=== PATIENT | male | born 1950 | race Caucasian/White ===

== ENCOUNTER 2022-02-13 11:00 | Inpatient (IN) | payer OTHER ==
[~2022-02-13] VITALS: Ht 167.6 cm; Wt 67.6 kg
[~2022-02-13 11:00] MED LIST: AMBIEN10 MG PO; AMITIZA24 MCG PO; ASPIR 8181 MG PO; CIPRO750 MG PO; CLONAZEPAM1 MG PO; CLONAZEPAM2 MG PO; Colace 100MG PO; DOCUSATE SODIU100 MG PO; GABAPENTIN400 MG PO; KETO10TA2 PO; KLONOPIN2 MG/TAB; LIBRAX PO; MEDROLPACK PO; NABUMETONE500 MG PO; NEURONTIN PO; NEURONTIN800 MG; NORFLEX100MG PO; PERCOCET 5-3251 EACH PO; PERCOCET 5/3251 TAB PO; PROTONIX40 MG PO; ZOCOR20 MG; ZOCOR20 MG PO
[2022-02-13] MEDS ORDERED: AMITIZA24 MCG PO (14:03)
[2022-02-13] MEDS ORDERED: PROTONIX40 MG PO (14:04)
[2022-02-13] MEDS ORDERED: CLARITIN10 M1 PO (14:04)
[2022-02-13] MEDS ORDERED: TRAZODONE HCL50 MG PO (14:05)
[2022-02-15] MEDS ORDERED: MEDROLPACK PO (08:13)
[2022-02-15] MEDS ORDERED: AMOX-CLAV 875-1 EACH PO (08:13)
[2022-02-15] MEDS ORDERED: COLACE100 MG PO (08:13)
[2022-02-15] MEDS ORDERED: NEURONTIN800 MG PO (08:13)
[2022-02-15] MEDS ORDERED: PERCOCET 5-3251 EACH PO (08:13)
== END 2022-02-17 19:34 | disposition home or self-care (01) | DRG 455 ==
LOC: O/R 02-15 08:45 → PED 02-15 08:45 → SURG 02-15 11:00 → PED 02-15 16:17 → SURG 02-15 18:15 → PED 02-17 19:34
PROVIDERS: ADMIT Orthopaedic Surgery Orthopaedic Surgery of the Spine; ATTEND Orthopaedic Surgery Orthopaedic Surgery of the Spine
PROC: 0SG00A0 Fusion of Lumbar Vertebral Joint with Interbody Fusion Device, Anterior Approach, Anterior Column, Open Approach (ICD-10-PCS; principal; 2022-02-15)
PROC: 0SG0071 Fusion of Lumbar Vertebral Joint with Autologous Tissue Substitute, Posterior Approach, Posterior Column, Open Approach (ICD-10-PCS; 2022-02-15)
PROC: 0SG30A0 Fusion of Lumbosacral Joint with Interbody Fusion Device, Anterior Approach, Anterior Column, Open Approach (ICD-10-PCS; 2022-02-15)
PROC: 0SG3071 Fusion of Lumbosacral Joint with Autologous Tissue Substitute, Posterior Approach, Posterior Column, Open Approach (ICD-10-PCS; 2022-02-15)
PROC: 0ST20ZZ Resection of Lumbar Vertebral Disc, Open Approach (ICD-10-PCS; 2022-02-15)
PROC: 0ST40ZZ Resection of Lumbosacral Disc, Open Approach (ICD-10-PCS; 2022-02-15)
PROC: 0SP004Z Removal of Internal Fixation Device from Lumbar Vertebral Joint, Open Approach (ICD-10-PCS; 2022-02-15)
PROC: 07DR0ZZ Extraction of Iliac Bone Marrow, Open Approach (ICD-10-PCS; 2022-02-15)
DX: M48.062 Spinal stenosis, lumbar region with neurogenic claudication (principal); M48.07 Spinal stenosis, lumbosacral region; M41.56 Other secondary scoliosis, lumbar region; M41.57 Other secondary scoliosis, lumbosacral region; M51.36 Other intervertebral disc degeneration, lumbar region; M51.37 Other intervertebral disc degeneration, lumbosacral region

== ENCOUNTER 2022-02-14 15:15 | Outpatient (CLI) | payer OTHER ==
[~2022-02-14 15:15] MED LIST changes: +CLARITIN10 M1 PO; +TRAZODONE HCL50 MG PO
[2022-02-15] MEDS ORDERED: PERCOCET 5-3251 EACH PO (08:13)
[2022-02-15] MEDS ORDERED: COLACE100 MG PO (08:13)
[2022-02-15] MEDS ORDERED: AMOX-CLAV 875-1 EACH PO (08:13)
[2022-02-15] MEDS ORDERED: NEURONTIN800 MG PO (08:13)
[2022-02-15] MEDS ORDERED: MEDROLPACK PO (08:13)
== END 2022-02-14 15:20 | disposition home or self-care (01) ==
LOC: TOM 15:15
PROVIDERS: ATTEND Internal Medicine
DX: I77.9 Disorder of arteries and arterioles, unspecified (principal)

== ENCOUNTER 2025-06-28 11:45 | Inpatient (IN) | payer OTHER ==
[~2025-06-28] VITALS: Ht 182.9 cm; Wt 62.6 kg
[~2025-06-28 11:45] MED LIST changes: +AMOX-CLAV 875-1 EACH PO; +COLACE100 MG PO; +NEURONTIN800 MG PO
[2025-06-28] MEDS ORDERED: ZETIA10 MG PO (13:58)
[2025-06-28] MEDS ORDERED: LIPITOR40 M1 PO (13:58)
[2025-07-05] MEDS ORDERED: MEDROLPACK PO (07:45)
[2025-07-05] MEDS ORDERED: ZOFRAN8 MG PO (07:45)
[2025-07-05] MEDS ORDERED: PERCOCET 5-3251 EACH PO (07:45)
[2025-07-05] MEDS ORDERED: COLACE100 MG PO (07:45)
[2025-07-05] MEDS ORDERED: 0.9 % SODIUM CHLORIDE 1,000 ML IV SCH (08:00)
[2025-07-05] MEDS ORDERED: PROMETHAZINE HCL 50 MG/ML AMPUL IM PRN (08:00)
[2025-07-05] MEDS ORDERED: ENALAPRILAT DIHYDRATE 1.25 MG/ML VIAL IV PRN (08:00)
[2025-07-05] MEDS ORDERED: VANCOMYCIN HCL 1,000 MG VIAL IV SCH (09:00)
[2025-07-05] MEDS ORDERED: MORPHINE SULFATE 4 MG/ML CARTRIDGE IV SCH (09:00)
[2025-07-05] MEDS ORDERED: METHYLPREDNISOLONE SOD SUCC 125 MG VIAL IV SCH (09:00)
[2025-07-05] MEDS ORDERED: CEFAZOLIN SODIUM 1,000 MG in 0.9 % SODIUM CHLORIDE 50 ML IV SCH (09:00)
[2025-07-05] MEDS ORDERED: DOCUSATE SODIUM 100MG CAP PO SCH (09:00)
[2025-07-05] MEDS ORDERED: TAMSULOSIN HCL 0.4 MG CAP PO SCH (09:00)
[2025-07-05] MEDS ORDERED: VANCOMYCIN HCL 1,000 MG VIAL ONE ×2 (11:05→15:25)
[2025-07-05] MEDS ORDERED: METHYLPREDNISOLONE ACETATE 80 MG/ML VIAL ONE (12:19)
[2025-07-05] MEDS ORDERED: HEMOSTATIC MATRIX WITH THROMBIN KIT TOP ONE (12:20)
[2025-07-05] MEDS ORDERED: METHYLPREDNISOLONE SOD SUCC 125 MG VIAL ONE (17:11)
[2025-07-05] MEDS ORDERED: CEFAZOLIN SODIUM 1,000 MG VIAL ONE (17:11)
[2025-07-05 18:33] VITALS: BP 139/68; O2SAT 96
[2025-07-05] MEDS ORDERED: ACETAMINOPHEN 500 MG GEL..CAP PO SCH (20:00)
[2025-07-05 22:14] VITALS: O2SAT 99
[2025-07-06] VITALS (7 sets, daily range): BP systolic 112–148; BP diastolic 50–78; O2SAT 90–98
[2025-07-06] MEDS ORDERED: SODIUM CHLORIDE 0.45 % 1,000 ML IV SCH
[2025-07-06] MEDS ORDERED: OxyCODONE HCL 5 MG TABLET (ROXICODONE) PO PRN (06:01)
[2025-07-06] MEDS ORDERED: VANCOMYCIN HCL 1,000 MG VIAL ONE (07:17)
[2025-07-06] MEDS ORDERED: ATORVASTATIN CALCIUM 40 MG TABLET PO SCH (09:00)
== END 2025-07-06 15:46 | disposition home or self-care (01) | DRG 473 ==
LOC: O/R 07-05 10:00 → SURG 07-05 10:00 → SURH 07-05 11:45 → SURG 07-05 14:48
PROVIDERS: ADMIT Orthopaedic Surgery Orthopaedic Surgery of the Spine; ATTEND Orthopaedic Surgery Orthopaedic Surgery of the Spine
PROC: 0RT30ZZ Resection of Cervical Vertebral Disc, Open Approach (ICD-10-PCS; 2025-07-05)
PROC: 07DS0ZZ Extraction of Vertebral Bone Marrow, Open Approach (ICD-10-PCS; 2025-07-05)
PROC: 0PB30ZZ Excision of Cervical Vertebra, Open Approach (ICD-10-PCS; 2025-07-05)
PROC: 4A11X4G Monitoring of Peripheral Nervous Electrical Activity, Intraoperative, External Approach (ICD-10-PCS; 2025-07-05)
PROC: 4A12X4Z Monitoring of Cardiac Electrical Activity, External Approach (ICD-10-PCS; 2025-07-05)
PROC: 0RG10A0 Fusion of Cervical Vertebral Joint with Interbody Fusion Device, Anterior Approach, Anterior Column, Open Approach (ICD-10-PCS; principal; 2025-07-05 13:30)
DX: M50.023 Cervical disc disorder at C6-C7 level with myelopathy (principal); Z98.1 Arthrodesis status; E78.00 Pure hypercholesterolemia, unspecified